=== PATIENT | female | born 1985 | race Caucasian/White ===

== ENCOUNTER 2020-07-21 13:58 | Emergency (ER) | payer OTHER ==
[~2020-07-21] VITALS: Ht 157.5 cm; Wt 61.2 kg
[~2020-07-21 13:58] MED LIST: ADDERALL 10 MG10 MG PO; ADDERALL XR 2020 MG PO; ALEVE220 M1; BACTRIM DS TAB1 EACH PO; BIRTH CONTROL; FLEXERIL PO; IBUPROFEN 600600 M1 PO; LAMISIL250 MG PO; NORCO 5-325 TA1 EACH PO; PERCOCET 5-3251 EACH PO; SKELAXIN 800 M800 M1 PO
[2020-07-21] MEDS ORDERED: LEVO-T75 MCG PO (14:22)
[2020-07-21 15:10] VITALS: BP 113/72
--- NOTE | 2020-07-21 15:44 | EKG ---
[facility] [place] [address] ELECTROCARDIOGRAM REPORT Name: EDWARD WOODRUFF Room #: DEP [facility]#: [id number] Admission: 07/21/20 Attend Phys: Discharge: 07/21/20 Date of : [birth year] Report #: [id number] THIS REPORT FOR: cc: Jaclyn Reyes,Jaclyn Onofre,William 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
[2020-07-21 15:49] LABS: HEMATOCRIT 36.6 % (37.0-47.0); HEMOGLOBIN 12.1 gm/dL (12.0-15.0); MCH 32.8 pg (26.0-34.0); MCHC 33.1 g/dL (28.0-37.0); MCV 99.1 fL (80.0-100.0); PLATELET COUNT 239 thou/uL (150-400); RBC 3.69 mil/uL (4.20-5.00); RDW 14.8 % (10.5-14.5); WBC 5.5 thou/uL (4.0-11.0)
[2020-07-21 15:58] LABS: CALCIUM 8.8 mg/dL (8.5-10.1); CREATININE 0.7 mg/dL (0.6-1.0); POTASSIUM 3.3 mmol/L (3.5-5.1)
[2020-07-21 16:04] LABS: ALBUMIN 3.5 g/dL (3.4-5.0); TOTAL BILIRUBIN 0.3 mg/dL (0.2-1.0); TOTAL PROTEIN 9.1 g/dL (6.4-8.2)
[2020-07-21 16:42] LABS: PLATELET ESTIMATE NORMAL
== END 2020-07-21 15:43 | disposition left against medical advice (07) ==
LOC: ER 13:58
PROVIDERS: Emergency Medicine
DX: U07.1 COVID-19 (principal); R07.89 Other chest pain; Z90.49 Acquired absence of other specified parts of digestive tract; Z79.2 Long term (current) use of antibiotics; Z79.899 Other long term (current) drug therapy; Z88.5 Allergy status to narcotic agent

== ENCOUNTER 2020-07-23 21:46 | Emergency (ER) | payer OTHER ==
[~2020-07-23] VITALS: Ht 157.5 cm; Wt 59.0 kg
--- NOTE | ~2020-07-23 | EMS ---
[address] [address] EMS Patient Care Report Name: EDWARD WOODRUFF Room #: REG ADINA Flannery#: [id number] Admission: 07/23/20 Attend Phys: Discharge: Date of : [birth year] Report #: [id number] THIS REPORT FOR: //name// Report Transmitted: 07/23/2020 21:23 EMS Care Summary [facility] MED-ACT Incident [id number] @ 07/23/2020 21:06 Incident Location [address] [place] [address] Patient EDWARD WOODRUFF Female, 35 Years 1985 Patient Address [address] [phone] Patient History Behavioral/Psychiatric Disorder,IV Drug Use/Abuse,Anxiety, Patient Allergies No known allergies, Patient Medications Adderall, Xanax, Chief Complaint "They told me to get CT scans." Disposition Transported No Lights/[place] Dispatch Reason Breathing Problem Transported To [facility] Narrative Upon arrival to scene we find pt lying on couch showing no outward signs of respiratory distress with no obvious ABC deficits. E31 on scene reports that they found pt asleep on the couch where she was easily woken and initially denied complaints. Pt's family reports that they felt as though pt was having [address] [address] EMS Patient Care Report Name: EDWARD WOODRUFF Room #: REG [facility] Delia#: [id number] Admission: 07/23/20 Attend Phys: Discharge: Date of : [birth year] Report #: [id number] difficulty breathing while sleeping, prompting EMS call. Pt reports that she was diagnosed with COVID-19 approximately four days ago and has asthma but denies all acute complaints of difficulty breathing. During assessment pt reports that she was contacted the previous day from a physician at [facility] who advised that she had an elevated D-Dimer value and that she should go to the ER for CT scans. Pt then reports that she wishes transport to [facility] so that she can be evaluated as instructed by [facility] physician Dr Donis. Pt continues to deny all acute complaints throughout the encounter. Pt condition monitored throughout transport without change. [facility] notified via [employer] with information only. Pt transported to [facility] as base hospital. Pt taken to ER room 6 and self transferred to bed. Full verbal report given to staff. Initial Vitals @PTAP: 114,R: 20,BP: 125/83,Pain: 0/10,GCS: 15,SpO2: 96,Revised Trauma: 12, @21:43P: 110,R: 20,BP: 145/93,Pain: 0/10,GCS: 15,SpO2: 96,Revised Trauma: 12, @21:36P: 113,R: 20,BP: 150/86,Pain: 0/10,GCS: 15,Temp: 97.7F,SpO2: 100,Revised Trauma: 12, Assessments @21:18MENTAL:Person Oriented,Time Oriented,Place Oriented,Event Oriented,SKIN:HEENT:Head/Face: No Abnormalities,LUNG SOUNDS:ABDOMEN:PELVIS//GI:No Abnormalities,EXTREMITIES:Left Arm: No Abnormalities,Right Arm: No Abnormalities,Left Leg: No Abnormalities,Right Leg: No Abnormalities,PULSE:Radial: 2+ Normal,NEURO:No Abnormalities, Impression COVID-19 - Confirmed by testing Procedures @21:22Surgical Mask on PatientResponse: Unchanged 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.#: [id number] Admission: 07/23/20 Attend Phys: Discharge: Date of : 89 Report #: [id number] 21:38,Depart Scene 21:43,BP: 145/93 M,PULSE: 110,RR: 20 R,SPO2: 96 Ox,ETCO2: ,BG: ,PAIN: 0,GCS: 15, 21:44,At Destination 22:06,Call Closed Disclaimer v1.1 Copyright 2020 [facility] This EMS Care Summary contains data elements from the applicable legal record (which may be displayed differently). It is designed to provide pertinent information for the following purposes: continuity of care, clinical quality, and state data reporting. The complete legal record is available to ED staff and administrators of the receiving hospital in ES's Patient Tracker. All data is provided "as is."
[~2020-07-23 21:46] MED LIST changes: +LEVO-T75 MCG PO
[2020-07-23 22:15] LABS: ABSOLUTE NEUTROPHILS 2.8 thou/uL (1.4-8.2); BASOPHILS 0.2 % (0.0-2.0); EOSINOPHILS 1.6 % (0.0-3.0); HEMATOCRIT 39.1 % (37.0-47.0); LYMPHOCYTES 44.4 % (24.0-44.0); MCH 33.4 pg (26.0-34.0); MCHC 33.4 g/dL (28.0-37.0); MONOCYTES 5.9 % (1.0-8.0); PLATELET COUNT 293 thou/uL (150-400); POLYS 47.9 % (36.0-66.0); RBC 3.91 mil/uL (4.20-5.00); RDW 14.6 % (10.5-14.5); WBC 5.8 thou/uL (4.0-11.0)
[2020-07-23 22:22] LABS: ANION GAP 16 mmol/L (7-16); BUN 6 mg/dL (7-18); CALCIUM 8.8 mg/dL (8.5-10.1); CHLORIDE 100 mmol/L (98-107); CO2 25 mmol/L (21-32); CREATININE 0.6 mg/dL (0.6-1.0); GLUCOSE 108 mg/dL (74-106); POTASSIUM 3.7 mmol/L (3.5-5.1); SODIUM 141 mmol/L (136-145)
[2020-07-23 22:32] LABS: ALBUMIN 3.7 g/dL (3.4-5.0); MAGNESIUM 1.8 mg/dL (1.8-2.4); SGOT 524 U/L (15-37); SGPT 242 U/L (30-65); TOTAL BILIRUBIN 0.5 mg/dL (0.2-1.0); TOTAL PROTEIN 9.4 g/dL (6.4-8.2); TROPONIN-I <0.06 ng/mL (<0.06)
[2020-07-23 23:49] LABS: URINE BILIRUBIN NEGATIVE (Negative); URINE BLOOD NEGATIVE (Negative); URINE CLARITY SL CLOUDY; URINE COLOR YELLOW; URINE GLUCOSE-RANDOM* NEGATIVE (Negative); URINE KETONES TRACE (Negative); URINE LEUKOCYTES-REFLEX NEGATIVE (Negative); URINE PROTEIN (DIPSTICK) NEGATIVE (Negative); URINE SPECIFIC GRAVITY 1.015 (1.005-1.035); URINE UROBILINOGEN 0.2 E.U./dl (0.2-1.0)
[2020-07-23 23:55] LABS: URINE NITRITE-REFLEX POSITIVE (Negative)
[2020-07-23 23:59] LABS: BACTERIA-REFLEX >30 Many /HPF (None Seen); CASTS None Seen /LPF (None Seen); CRYSTALS None Seen /LPF (None Seen); MUCUS 0-3 Light strn/LPF (None Seen); SQUAMOUS 0-3 Few /LPF (0-3); URINE RBC 0-2 Rare /HPF (0-2); URINE WBC-REFLEX 6-15 Few /HPF (0-5)
[2020-07-24 00:03] LABS: AMP/METHAMP POSITIVE (Negative); BARBITURATES Negative (Negative); BENZODIAZEPINES Negative (Negative); COCAINE Negative (Negative); METHADONE Negative (Negative); OPIATES Negative (Negative); PCP Negative (Negative)
[2020-07-24 00:48] VITALS: BP 131/90
[2020-07-24] MEDS ORDERED: BACTRIM DS TAB1 EACH PO (00:50)
--- NOTE | 2020-07-26 07:29 | EKG ---
[facility] [place] [address] ELECTROCARDIOGRAM REPORT Name: EDWARD WOODRUFF Room #: DEP [facility]#: [id number] Admission: 07/23/20 Attend Phys: Discharge: 07/24/20 Date of : [birth year] Report #: [id number] THIS REPORT FOR: cc: Jaclyn Reyes,William Kwok MD [facility] ~ THIS REPORT FOR: //name// 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[facility] : 1985 Requested By: Car Alcaraz Order Number: [id number] MD: William Dubois Measurements Intervals [place] Rate: 116 P: 55 [place]: 148 QRS: 48 QRSD: 83 T: 28 QT: 338 QTc: 470 Interpretive Statements Sinus tachycardia Borderline prolonged QT interval Compared to ECG 07/21/2020 15:16:28 Sinus rhythm no longer present Electronically Signed On 07-26-2020 7:29:33 PASTRY ASSISTANT by William Dubois [email or web address] <ELECTRONICALLY SIGNED> By: William Dubois MD, FACC 07/26/20 0729 54 54 William Dubois MD, [facility] /EPI
== END 2020-07-24 00:58 | disposition home or self-care (01) ==
LOC: ER 21:46
PROVIDERS: Emergency Medicine
DX: U07.1 COVID-19 (principal); F10.129 Alcohol abuse with intoxication, unspecified; F15.10 Other stimulant abuse, uncomplicated; N39.0 Urinary tract infection, site not specified; K70.10 Alcoholic hepatitis without ascites; F17.210 Nicotine dependence, cigarettes, uncomplicated; Z90.49 Acquired absence of other specified parts of digestive tract; Z79.899 Other long term (current) drug therapy; Z88.5 Allergy status to narcotic agent; Y90.7 Blood alcohol level of 200-239 mg/100 ml

== ENCOUNTER → 2021-03-27 | Emergency (ER) | payer OTHER ==
[~2021-03-27] VITALS: Ht 157.5 cm; Wt 67.1 kg
[2021-03-27 12:55] VITALS: BP 136/106
[2021-03-27 13:38] LABS: ABSOLUTE NEUTROPHILS 9.5 thou/uL (1.4-8.2); BASOPHILS 0.7 % (0.0-2.0); EOSINOPHILS 2.8 % (0.0-3.0); HEMATOCRIT 37.8 % (37.0-47.0); HEMOGLOBIN 12.7 gm/dL (12.0-15.0); LYMPHOCYTES 25.7 % (24.0-44.0); MCH 33.1 pg (26.0-34.0); MCHC 33.5 g/dL (28.0-37.0); MONOCYTES 6.8 % (1.0-8.0); PLATELET COUNT 412 thou/uL (150-400); RBC 3.82 mil/uL (4.20-5.00); RDW 16.1 % (10.5-14.5); WBC 14.8 thou/uL (4.0-11.0)
[2021-03-27 13:40] LABS: CALCIUM 9.1 mg/dL (8.5-10.1); CREATININE 0.7 mg/dL (0.6-1.0); POTASSIUM 3.8 mmol/L (3.5-5.1)
== END ==
LOC: ER 12:50
PROVIDERS: Nurse Practitioner
DX: R53.83 Other fatigue (principal); F17.210 Nicotine dependence, cigarettes, uncomplicated; Z90.49 Acquired absence of other specified parts of digestive tract; Z79.2 Long term (current) use of antibiotics; Z79.899 Other long term (current) drug therapy; Z88.6 Allergy status to analgesic agent; Z20.822 Contact with and (suspected) exposure to COVID-19